=== PATIENT | male | born 1965 | race Two or more races ===

== ENCOUNTER 2017-08-08 12:42 | Emergency (ER) | payer OTHER ==
[~2017-08-08] VITALS: Ht 188 cm; Wt 112.9 kg
[~2017-08-08 12:42] MED LIST: AMLO2.5T2; HYDR-3204; LISI2.5T2; OXYC5CAP18; ROSU5TAB; TIZA2CAP
--- NOTE | 2017-08-08 12:45 | NUR ---
[id number], BIBRA 880 FROM WORK C/O LEFT KNEE PAIN S/P LIFTING HEAVY OBJECT FROM WORK. HX OF L KNEE PROBLEM. RR IS EVEN AND UNLABORED WITH NAD NOTED. SKIN IS WARM AND DRY. AWAITING MD FOR EVAL.
[2017-08-08] MEDS ORDERED: NAPROXEN 250 MG TABLET PO STA (12:55)
[2017-08-08] MEDS ORDERED: HYDROCODONE/APAP 5/325MG 1 EACH TABLET PO STA (12:55)
[2017-08-08] MEDS ORDERED: HYDROCODONE/APAP 5/325MG 1 EACH TABLET ONE (12:59)
[2017-08-08] MEDS ORDERED: NAPROXEN 250 MG TABLET ONE (13:00)
--- NOTE | 2017-08-08 14:19 | NUR ---
PT. VERBALIZED UNDERSTANDING OF AFTERCARE INSTRUCTIONS.Patient discharged to home in stable condition. Written and verbal after care instructions given. Patient verbalizes understanding of instruction.
[2017-08-08 14:21] VITALS: BP 121/85
== END 2017-08-08 14:24 | disposition home or self-care (01) ==
LOC: ER 12:46
DX: M25.462 Effusion, left knee (principal); I10 Essential (primary) hypertension; Z98.890 Other specified postprocedural states; Z85.46 Personal history of malignant neoplasm of prostate
CPT/HCPCS: 29505; 73564; 99284; A4606; Z7610